=== PATIENT | female | born 1965 | race Caucasian/White ===

== ENCOUNTER 2018-07-20 15:08 | Emergency (ER) | payer BC ==
[~2018-07-20] VITALS: Ht 172.7 cm; Wt 84.0 kg
[2018-07-20 15:33] LABS: BASOPHILS % (AUTO) 0.4 % (0-1); EOSINOPHILS # (AUTO) 0.2 X10'3 (0-0.9); EOSINOPHILS % (AUTO) 1.9 % (0-6); HEMATOCRIT 43.5 % (35.0-45.0); HEMOGLOBIN 14.7 g/dl (12.0-16.0); LYMPHOCYTES % (AUTO) 33.9 % (21-51); MEAN CORPUSCULAR HEMOGLOBIN 29.7 PG (27.0-31.0); MEAN CORPUSCULAR HGB CONC 33.7 % (33.0-36.5); MEAN CORPUSCULAR VOLUME 88.1 FL (78-98); MEAN PLATELET VOLUME 7.3 FL (7.4-10.4); MONOCYTES # (AUTO) 0.6 X10'3 (0-0.9); MONOCYTES % (AUTO) 6.3 % (2-12); NEUTROPHILS # (AUTO) 5.1 X10'3 (1.8-7.7); NEUTROPHILS % (AUTO) 57.5 % (42-75); PLATELET COUNT 431 X10'3 (140-440); RED BLOOD COUNT 4.94 X10'6 (4.20-5.60); RED CELL DISTRIBUTION WIDTH 13.7 % (11.5-14.5); WHITE BLOOD COUNT 8.9 X10'3 (4.5-11.0)
[2018-07-20 15:42] LABS: INR 0.9 INR; PARTIAL THROMBOPLASTIN TIME 27 SECONDS (22-32); PROTHROMBIN TIME 9.3 SECONDS (9.0-12.0)
[2018-07-20] MEDS ORDERED: diltiazem 5mg/ml 5ml inj. IV ONE ×2 (15:45→17:05)
[2018-07-20 15:48] LABS: ALANINE AMINOTRANSFERASE 28 U/L (12-78); ALBUMIN 4.3 G/DL (3.4-5.0); ALBUMIN/GLOBULIN RATIO 1.1 (1.1-1.5); ALKALINE PHOSPHATASE 66 IU/L (46-116); ANION GAP 11 (8-16); ASPARTATE AMINO TRANSFERASE 17 U/L (10-37); BILIRUBIN,TOTAL 0.3 MG/DL (0.1-1.0); BLOOD UREA NITROGEN 15 MG/DL (7-18); CALCIUM 9.9 MG/DL (8.5-10.1); CHLORIDE 106 MMOL/L (99-107); CREATININE 0.79 MG/DL (0.40-0.90); GLUCOSE 96 MG/DL (70-104); POTASSIUM 3.9 MMOL/L (3.5-5.1); SODIUM 143 MMOL/L (135-145); TOTAL CARBON DIOXIDE 26.5 MMOL/L (24-32); TOTAL PROTEIN 8.1 G/DL (6.4-8.2); eGFR 76 ML/MIN
[2018-07-20 16:00] LABS: D-DIMER 0.22 MG/L FEU (0-0.50)
[2018-07-20] MEDS ORDERED: diltiazem CD 120mg capsule (once-daily) PO SCH (16:45)
[2018-07-20] MEDS ORDERED: ASPI-1264 PO (17:03)
[2018-07-20] MEDS ORDERED: DILT120C94 PO (17:03)
[2018-07-20] MEDS ORDERED: aspirin 81mg tab.chew PO ONE (17:05)
[2018-07-20 17:21] VITALS: BP 124/89
== END 2018-07-20 18:29 | disposition home or self-care (01) ==
LOC: ER 15:09
DX: I48.91 Unspecified atrial fibrillation (principal); Z88.2 Allergy status to sulfonamides; Z79.82 Long term (current) use of aspirin; Z79.899 Other long term (current) drug therapy
CPT/HCPCS: 36415; 71045; 80053; 83880; 84439; 84443; 84484; 85025; 85379; 85610; 85730; 93005; 96374; 96376; 99285; J3490

== ENCOUNTER 2021-03-28 08:21 | Emergency (ER) | payer BC, SELFPAY ==
[~2021-03-28] VITALS: Ht 170.2 cm; Wt 86.0 kg
[~2021-03-28 08:21] MED LIST: DILT120C94 PO
[2021-03-28 08:27] VITALS: BP 132/87
[2021-03-28] MEDS ORDERED: CLIN-97 PO (08:44)
== END 2021-03-28 08:47 | disposition home or self-care (01) ==
LOC: ER 08:21
DX: L03.211 Cellulitis of face (principal); M25.521 Pain in right elbow; I48.91 Unspecified atrial fibrillation; Z86.14 Personal history of Methicillin resistant Staphylococcus aureus infection; Z88.2 Allergy status to sulfonamides; Z79.2 Long term (current) use of antibiotics; Z79.899 Other long term (current) drug therapy
CPT/HCPCS: 99283

== ENCOUNTER 2024-06-25 11:37 | Emergency (ER) | payer BC ==
[~2024-06-25] VITALS: Ht 170.2 cm; Wt 89.0 kg
[~2024-06-25 11:37] MED LIST changes: +CLIN-97 PO
[2024-06-25] MEDS ORDERED: AMOX-115 PO (13:17)
[2024-06-25] MEDS ORDERED: PRED10TA23 PO (13:17)
[2024-06-25 13:50] VITALS: BP 132/80; PULSE 89; RESP 16; TEMP 98.6; O2SAT 99
== END 2024-06-25 13:37 | disposition home or self-care (01) ==
LOC: ER 11:38
DX: J20.9 Acute bronchitis, unspecified (principal); I48.91 Unspecified atrial fibrillation; Z88.2 Allergy status to sulfonamides; Z79.2 Long term (current) use of antibiotics; Z79.899 Other long term (current) drug therapy
CPT/HCPCS: 71045; 99283